=== PATIENT | male | born 1985 | race Caucasian/White ===

== ENCOUNTER 2016-12-01 17:38 | Emergency (ER) | payer OTHER ==
[~2016-12-01] VITALS: Ht 182.9 cm; Wt 103.3 kg
[2016-12-01 18:00] LABS: HEMATOCRIT 34.7 % (38.0-50.0); MCH 30.1 PG (29.0-34.0); MCHC 35.4 G/DL (30.0-36.0); MEAN PLAT.VOLUME 10.3 uM^3 (9.0-12.4); PLATELET COUNT 177 K/uL (156-360); RBC DIS.WIDTH-CV 12.9 % (11.8-14.6); RBC DIS.WIDTH-SD 39.3 % (39-53); RED BLOOD COUNT 4.08 M/uL (4.00-5.50); WHITE BLOOD COUNT 6.8 K/uL (4.1-10.2)
[2016-12-01 18:08] LABS: CHLORIDE 106 mEq/L (99-109); POTASSIUM 3.8 mEq/L (3.7-5.4); SODIUM 142 mEq/L (136-147)
[2016-12-01 18:10] LABS: GLUCOSE 90 mg/dL (70-99)
[2016-12-01 18:12] LABS: ANION GAP 11 MEQ/L (2-14)
[2016-12-01 18:15] LABS: GFR ESTIMATE (CALCULATED) > 59 mL/min/; UREA NITROGEN (BUN) 10 mg/dL (9-23)
[2016-12-01 18:22] LABS: TROP-I INTERPRETATION NEGATIVE; TROPONIN-I < 0.01 ng/mL (0.0-0.30)
[2016-12-01 19:21] VITALS: BP 137/83
== END 2016-12-01 19:32 | disposition home or self-care (01) ==
LOC: EME 17:38
DX: R07.9 Chest pain, unspecified (principal)
CPT/HCPCS: 71020; 80048; 84484; 85027; 93005; 99281; 99284

== ENCOUNTER 2017-09-07 11:06 | Emergency (ER) | payer OTHER ==
[~2017-09-07] VITALS: Ht 182.9 cm; Wt 101.0 kg
[2017-09-07 12:42] LABS: EOSINOPHIL (%) 1.6 % (0-5); EOSINOPHIL COUNT 0.1 K/uL (0-0.3); HEMATOCRIT 35.3 % (38.0-50.0); IMMATURE GRANULOCYTE (%) 0.5 % (0.0-0.7); INSTRUMENT ABS NEUTROPHIL CT 3.7 K/uL; MCH 30.8 PG (29.0-34.0); MCHC 35.7 G/DL (30.0-36.0); MCV 86.3 FL (86-99); MEAN PLAT.VOLUME 10.5 uM^3 (9.0-12.4); MONOCYTE (%) 7.6 % (3-12); MONOCYTE COUNT 0.5 K/uL (0-0.8); NEUTROPHIL (%) 58.3 % (45-76); NEUTROPHIL COUNT 3.7 K/uL (1.8-6.4); PLATELET COUNT 181 K/uL (156-360); RBC DIS.WIDTH-CV 12.6 % (11.8-14.6); RBC DIS.WIDTH-SD 39.7 % (39-53); RED BLOOD COUNT 4.09 M/uL (4.00-5.50); WHITE BLOOD COUNT 6.3 K/uL (4.1-10.2)
[2017-09-07 12:54] LABS: CHLORIDE 108 mEq/L (99-109); POTASSIUM 3.8 mEq/L (3.7-5.4); SODIUM 142 mEq/L (136-147)
[2017-09-07 12:56] LABS: GLUCOSE 87 mg/dL (70-99)
[2017-09-07 12:58] LABS: ANION GAP 8 MEQ/L (2-14)
[2017-09-07 13:00] LABS: GFR ESTIMATE (CALCULATED) > 59 mL/min/ (58.99-99999)
[2017-09-07 13:01] LABS: UREA NITROGEN (BUN) 15 mg/dL (9-23)
[2017-09-07] MEDS ORDERED: ANTIVERT25 MG PO (15:14)
[2017-09-07] MEDS ORDERED: FIORICET 50-301 EAC1 PO (15:14)
[2017-09-07 15:28] VITALS: BP 114/64
== END 2017-09-07 15:37 | disposition home or self-care (01) ==
LOC: EME 11:06
PROVIDERS: Emergency Medicine
DX: R51 Headache (principal); R42 Dizziness and giddiness; Z87.891 Personal history of nicotine dependence
CPT/HCPCS: 70450; 80048; 85025; 93005; 99281; 99284